=== PATIENT | female | born 1995 | race Caucasian/White ===

== ENCOUNTER 2018-04-21 14:53 | Emergency (ER) | payer MEDICAID ==
[2018-04-21 18:02] LABS: CHLAMYDIA DNA AMPLIFICATION NEGATIVE (NEGATIVE); GC DNA AMPLIFICATION NEGATIVE (NEGATIVE)
== END 2018-04-21 17:19 | disposition left against medical advice (07) ==
LOC: M ED 14:53
DX: Z20.2 Contact with and (suspected) exposure to infections with a predominantly sexual mode of transmission (principal); Z3A.25 25 weeks gestation of pregnancy; Z53.21 Procedure and treatment not carried out due to patient leaving prior to being seen by health care provider

== ENCOUNTER → 2018-07-04 | Outpatient (REF) | payer MEDICAID | LOC: M LAB REF 13:07 | DX: Z34.83 Encounter for supervision of other normal pregnancy, third trimester (principal) | CPT/HCPCS: 87081 ==

== ENCOUNTER 2018-07-31 05:32 | Inpatient (IN) | payer OTHER ==
[2018-07-31] MEDS ORDERED: ceFAZolin 2 GM/D5W 50 ML IV BAG (J0690 PER 500MG) As Ordered (06:14)
[2018-07-31] MEDS ORDERED: BICITRA 30ML SOLN UDC As Ordered (06:14)
[2018-07-31 06:27] LABS: HEMATOCRIT 34.5 % (36.0-47.0); MEAN CORPUSCULAR HEMOGLOBIN 27.9 pg (27.0-33.0); MEAN CORPUSCULAR HGB CONC 31.9 g/dl (32.0-36.5); MEAN CORPUSCULAR VOLUME 87.6 fl (80.0-96.0); PLATELET COUNT, AUTOMATED 209 10^3/uL (150-450); RED BLOOD COUNT 3.94 10^6/uL (4.00-5.40); RED CELL DISTRIBUTION WIDTH 13.3 % (11.5-14.5); WHITE BLOOD COUNT 8.3 10^3/uL (4.0-10.0)
[2018-07-31] MEDS ORDERED: LR 1,000 ML IV (07:00)
[2018-07-31] MEDS: LR 800 ML IV (07:27)
[2018-07-31] MEDS: BICITRA 30ML SOLN UDC PO (07:27)
[2018-07-31] MEDS ORDERED: ONDANSETRON 4MG/2ML VIAL (J2405) IV ×3 (07:46→09:00)
[2018-07-31] MEDS ORDERED: NALOXONE INJ 0.4 MG/1 ML VIAL (J2310) IV ×2 (07:46)
[2018-07-31] MEDS ORDERED: MORPHINE PRES-FREE INJ 10 MG/10 ML VIAL (J2274) As Ordered (07:52)
[2018-07-31] MEDS ORDERED: ONDANSETRON 4MG/2ML VIAL (J2405) As Ordered (07:52)
[2018-07-31] MEDS ORDERED: OXYTOCIN INJ 10 UNITS/ML VIAL (J2590) As Ordered (07:52)
[2018-07-31] MEDS ORDERED: ePHEDrine SULFATE 25 MG/5 ML(5MG/ML) SYRINGE As Ordered (07:56)
[2018-07-31] MEDS: PRENATAL VITAMINS CHEWABLE TABLET PO (09:00)
[2018-07-31] MEDS ORDERED: METOCLOPRAMIDE INJ 10MG/2ML VIAL (J2765) IV (09:00)
[2018-07-31] MEDS ORDERED: fentaNYL 100 MCG/2 ML INJECTION (J3010) IV (09:00)
[2018-07-31] MEDS ORDERED: MEPERIDINE INJ 25 MG/ML VIAL (J2175) IV (09:00)
[2018-07-31] MEDS ORDERED: PERCOCET 5MG/325MG TAB PO (09:00)
[2018-07-31] MEDS: ePHEDrine SULFATE 25 MG/5 ML(5MG/ML) SYRINGE IV (09:00)
[2018-07-31] MEDS: LR 1,000 ML IV ×2 (09:00)
[2018-07-31] MEDS ORDERED: KETOROLAC 30 MG/ML VIAL (J1885) IV (09:00)
[2018-07-31] MEDS ORDERED: OXYTOCIN 30 UNITS IN 0.9% NaCl 500ML IV BAG (J2590) As Ordered (09:09)
[2018-07-31] MEDS ORDERED: KETOROLAC 30 MG/ML VIAL (J1885) As Ordered (09:09)
[2018-07-31] MEDS: OXYTOCIN DRIP 30 UNITS in APPROPRIATE DILUENT 1 EA IV (09:12)
[2018-07-31] MEDS: KETOROLAC 30 MG/ML VIAL (J1885) IV ×3 (09:12→20:46)
[2018-07-31] MEDS: RHOGAM 300 MCG (1500 IU) INJ (J2790) IM (10:54)
[2018-07-31] MEDS: MEASLES,MUMPS,RUBELLA VACCINE INJ (MMR-II) (90707) SC (10:55)
[2018-07-31] MEDS: NALBUPHINE HCL 10 MG/ML AMP (J2300) IV ×2 (12:13→20:46)
[2018-07-31] MEDS: METOCLOPRAMIDE INJ 10MG/2ML VIAL (J2765) IV (14:22)
[2018-08-01] MEDS: LR 1,000 ML IV ×2 (01:00→01:15)
[2018-08-01] MEDS: KETOROLAC 30 MG/ML VIAL (J1885) IV (02:39)
[2018-08-01 07:26] LABS: HEMATOCRIT 27.9 % (36.0-47.0); HEMOGLOBIN 9.1 g/dl (12.0-15.5); MEAN CORPUSCULAR HEMOGLOBIN 28.3 pg (27.0-33.0); MEAN CORPUSCULAR HGB CONC 32.6 g/dl (32.0-36.5); MEAN CORPUSCULAR VOLUME 86.6 fl (80.0-96.0); PLATELET COUNT, AUTOMATED 161 10^3/uL (150-450); RED BLOOD COUNT 3.22 10^6/uL (4.00-5.40); RED CELL DISTRIBUTION WIDTH 13.6 % (11.5-14.5); WHITE BLOOD COUNT 8.3 10^3/uL (4.0-10.0)
[2018-08-01] MEDS: PRENATAL VITAMINS CHEWABLE TABLET PO (10:18)
[2018-08-01] MEDS: IBUPROFEN 800 MG TAB PO ×2 (10:18→19:39)
[2018-08-01] MEDS ORDERED: PERCOCET 5MG/325MG TAB PO (17:30)
[2018-08-01] MEDS: PERCOCET 5MG/325MG TAB PO (17:35)
[2018-08-02] MEDS: IBUPROFEN 800 MG TAB PO ×2 (02:22→11:37)
[2018-08-02] MEDS: PRENATAL VITAMINS CHEWABLE TABLET PO (07:42)
[2018-08-02 09:30] LABS: HBSAG L&D NEGATIVE (NEGATIVE)
== END 2018-08-02 12:25 | disposition home or self-care (01) | DRG 540 ==
LOC: M LDI 05:32 → M OBS 10:16
PROVIDERS: Specialist
PROC: 10D00Z1 Extraction of Products of Conception, Low, Open Approach (ICD-10-PCS; principal; 2018-07-31 07:30)
DX: O34.211 Maternal care for low transverse scar from previous cesarean delivery (principal); Z37.0 Single live birth; Z3A.39 39 weeks gestation of pregnancy

== ENCOUNTER 2018-10-02 08:24 | Emergency (ER) | payer OTHER ==
[~2018-10-02] VITALS: Ht 162.6 cm; Wt 77.7 kg
[~2018-10-02 08:24] MED LIST: IBUP-1114 PO; OXYC1TAB23 PO; PREN200C PO; prenatal PO
[2018-10-02] MEDS ORDERED: NS 1,000 ML IV ONE (08:45)
[2018-10-02] MEDS ORDERED: ONDANSETRON 4MG/2ML VIAL (J2405) IV ONE (08:45)
[2018-10-02 09:25] LABS: BASO % 0.3 % (0.0-1.0); EOS # 0.1 10^3/uL (0.0-0.50); EOS % 1.2 % (0.0-3.0); HEMATOCRIT 37.2 % (36.0-47.0); HEMOGLOBIN 12.4 g/dl (12.0-15.5); LYMPH % 33.4 % (24.0-44.0); MEAN CORPUSCULAR HEMOGLOBIN 28.1 pg (27.0-33.0); MEAN CORPUSCULAR HGB CONC 33.3 g/dl (32.0-36.5); MEAN CORPUSCULAR VOLUME 84.2 fl (80.0-96.0); MONO # 0.5 10^3/uL (0.0-0.8); MONO % 7.4 % (0.0-5.0); NEUTROPHILS # 3.5 10^3/uL (1.8-7.7); NEUTROPHILS % 57.5 % (36.0-66.0); PLATELET COUNT, AUTOMATED 260 10^3/uL (150-450); RED BLOOD COUNT 4.42 10^6/uL (4.00-5.40); WHITE BLOOD COUNT 6.1 10^3/uL (4.0-10.0)
[2018-10-02] MEDS: MORPHINE 2 MG/ML 1ML SYRINGE (J2270) IV PRN ×2 (09:47→11:44)
[2018-10-02 09:58] LABS: ALBUMIN 3.6 GM/DL (3.2-5.2); ALT/SGPT 64 U/L (12-78); AMYLASE 15 U/L (25-115); BILIRUBIN,DIRECT 0.2 MG/DL (0.0-0.2); BILIRUBIN,TOTAL 0.7 MG/DL (0.2-1.0); BLOOD UREA NITROGEN 8 MG/DL (7-18); CALCIUM LEVEL 9.3 MG/DL (8.5-10.1); CARBON DIOXIDE LEVEL 23 MEQ/L (21-32); CHLORIDE LEVEL 107 MEQ/L (98-107); CREATININE FOR GFR 0.69 MG/DL (0.55-1.30); GLOMERULAR FILTRATION RATE > 60.0 (>60); GLUCOSE, FASTING 95 MG/DL (70-100); HCG, SERUM QUALITATIVE NEGATIVE (NEGATIVE); LIPASE 86 U/L (73-393); POTASSIUM SERUM 4.3 MEQ/L (3.5-5.1); SODIUM LEVEL 140 MEQ/L (136-145); TOTAL PROTEIN 7.2 GM/DL (6.4-8.2)
[2018-10-02] MEDS ORDERED: ISOVUE-370 76% 100ML VIAL (Q9967) As Ordered ONE (10:22)
--- NOTE | 2018-10-02 11:28 | REP ---
CT abdomen and pelvis with IV but without oral contrast: History: Right lower quadrant, greater than left lower quadrant pain. Rule out appendicitis. CT contrast dose: 100 mL of intravenous Isovue 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 There is moderate stool in the ascending and descending colon. Umbilical jewelry is noted. The lung bases are clear. The liver and the spleen are normal in size and homogeneous in texture. Gallbladder and the pancreas are unremarkable. No adrenal lesion is seen. The kidneys enhance symmetrically and are morphologically intact. No retroperitoneal mass or adenopathy is observed. No free fluid or free intraperitoneal air is seen. Small follicle cysts are seen in each ovary. No uterine abnormality is seen. The urinary bladder is unremarkable. A section scar is visible in the lower abdomen suprapubic region. A normal appendix is visible in the right lower quadrant. There are several right lower quadrant small bowel mesenteric lymph nodes. The largest of these measures 8.5 mm in short axis dimension. These are not enlarged. No pelvic mass or adenopathy is seen. Bone window settings show no significant bony abnormality. Impression: Normal appendix seen. There are a few right lower quadrant mesenteric lymph nodes which are not pathologically enlarged. Question mesenteric adenitis. Otherwise negative CT study abdomen and pelvis. Electronically Signed by Giuseppe Ko MD 10/02/2018 01:18 P
[2018-10-02 11:36] VITALS: BP 140/87
[2018-10-02 11:55] LABS: CHLAMYDIA DNA AMPLIFICATION NEGATIVE (NEGATIVE); GC DNA AMPLIFICATION NEGATIVE (NEGATIVE)
== END 2018-10-02 11:52 | disposition home or self-care (01) ==
LOC: M ED 08:24
DX: R10.9 Unspecified abdominal pain (principal); Z87.440 Personal history of urinary (tract) infections
CPT/HCPCS: 74177; 80048; 80076; 81001; 82150; 83605; 83690; 84703; 85025; 87040; 87210; 87491; 87591; 96374; 96375; 96376; 99284; J2270; J2405; Q9967

== ENCOUNTER → 2018-11-09 | Outpatient (REF) | payer OTHER ==
[2018-11-09 20:32] LABS: CHLAMYDIA DNA AMPLIFICATION NEGATIVE (NEGATIVE); GC DNA AMPLIFICATION NEGATIVE (NEGATIVE)
== END ==
LOC: M LAB REF 17:01
PROVIDERS: ATTEND Advanced Practice Midwife
DX: Z11.3 Encounter for screening for infections with a predominantly sexual mode of transmission (principal)

== ENCOUNTER → 2018-12-06 | Outpatient (REF) | payer OTHER ==
[2018-12-06 20:26] LABS: CHLAMYDIA DNA AMPLIFICATION NEGATIVE (NEGATIVE); GC DNA AMPLIFICATION NEGATIVE (NEGATIVE)
== END ==
LOC: M LAB REF 17:08
PROVIDERS: ATTEND Advanced Practice Midwife
DX: Z11.3 Encounter for screening for infections with a predominantly sexual mode of transmission (principal)

== ENCOUNTER → 2018-12-20 | Outpatient (REF) | payer OTHER ==
[2018-12-20 12:36] LABS: HEMATOCRIT 36.1 % (36.0-47.0); HEMOGLOBIN 11.2 g/dl (12.0-15.5); MEAN CORPUSCULAR VOLUME 93.5 fl (80.0-96.0); PLATELET COUNT, AUTOMATED 205 10^3/uL (150-450); RED BLOOD COUNT 3.86 10^6/uL (4.00-5.40); WHITE BLOOD COUNT 4.7 10^3/uL (4.0-10.0)
[2018-12-20 13:04] LABS: ALBUMIN 3.5 GM/DL (3.2-5.2); ALT/SGPT 62 U/L (12-78); BILIRUBIN,TOTAL 0.8 MG/DL (0.2-1.0); BLOOD UREA NITROGEN 8 MG/DL (7-18); CALCIUM LEVEL 8.8 MG/DL (8.5-10.1); CARBON DIOXIDE LEVEL 27 MEQ/L (21-32); CHLORIDE LEVEL 112 MEQ/L (98-107); CHOLESTEROL LEVEL 154 MG/DL (<200); CREATININE FOR GFR 0.68 MG/DL (0.55-1.30); FREE T4 1.18 NG/DL (0.76-1.46); GLOMERULAR FILTRATION RATE > 60.0 (>60); GLUCOSE, FASTING 86 MG/DL (70-100); HDL CHOLESTEROL 25 MG/DL (>40); LDL CHOLESTEROL 87 MG/DL (<100); NON-HDL-C 129 MG/DL; POTASSIUM SERUM 4.2 MEQ/L (3.5-5.1); SODIUM LEVEL 144 MEQ/L (136-145); TOTAL 25(OH) VITAMIN D 9.2 NG/ML (30.0-100.0); TRIGLYCERIDES LEVEL 209 MG/DL (<150)
[2018-12-20 14:10] LABS: ATYPICAL LYMPH 28 % (0-5); LYMPHOCYTES 38 % (16-52); MONOCYTES 7 % (0-8); NEUTROPHILS 27 % (35-75); PLATELET ESTIMATE NORMAL (NORMAL)
[2018-12-20 14:11] LABS: ANISOCYTOSIS 1+; OVALOCYTES 1+; POIKILOCYTOSIS 1+
[2018-12-20 18:33] LABS: MONO SCRN NEGATIVE (NEGATIVE)
== END ==
LOC: M SFHCPLAZ 09:58
PROVIDERS: ATTEND Nurse Practitioner Family
DX: Z13.228 Encounter for screening for other metabolic disorders (principal); E55.9 Vitamin D deficiency, unspecified

== ENCOUNTER → 2019-01-08 | Outpatient (REF) | payer OTHER | LOC: M LAB REF 12:44 | PROVIDERS: ATTEND Advanced Practice Midwife | DX: Z12.4 Encounter for screening for malignant neoplasm of cervix (principal) ==

== ENCOUNTER → 2019-02-28 | Outpatient (CLI) | payer OTHER ==
[2019-02-28 19:29] LABS: CHLAMYDIA DNA AMPLIFICATION POSITIVE (NEGATIVE); GC DNA AMPLIFICATION NEGATIVE (NEGATIVE)
[2019-03-02 10:26] LABS: HEPATITIS A ANTIBODY IGM NEGATIVE (NEGATIVE); HEPATITIS B CORE ANTIBODY IGM NEGATIVE (NEGATIVE); HEPATITIS B SURFACE ANTIGEN NEGATIVE (NEGATIVE); HIV 1&2 SCREEN CENTAUR NEGATIVE (NEGATIVE)
== END ==
LOC: M SMT 13:46
PROVIDERS: ATTEND Advanced Practice Midwife
DX: Z11.3 Encounter for screening for infections with a predominantly sexual mode of transmission (principal); R30.0 Dysuria

== ENCOUNTER 2019-06-03 17:49 | Emergency (ER) | payer OTHER ==
[~2019-06-03] VITALS: Ht 162.6 cm; Wt 73.4 kg
[2019-06-03 18:29] LABS: BASO # 0.1 10^3/uL (0.0-0.2); EOS % 0.8 % (0.0-3.0); HEMOGLOBIN 13.3 g/dl (12.0-15.5); LYMPH # 2.4 10^3/uL (1.5-5.0); MEAN CORPUSCULAR HEMOGLOBIN 31.2 pg (27.0-33.0); MEAN CORPUSCULAR HGB CONC 33.3 g/dl (32.0-36.5); MEAN CORPUSCULAR VOLUME 93.9 fl (80.0-96.0); MONO # 0.3 10^3/uL (0.0-0.8); MONO % 5.7 % (0.0-5.0); NEUTROPHILS # 2.5 10^3/uL (1.5-8.5); NEUTROPHILS % 47.3 % (36.0-66.0); PLATELET COUNT, AUTOMATED 230 10^3/uL (150-450); RED BLOOD COUNT 4.26 10^6/uL (4.00-5.40); WHITE BLOOD COUNT 5.2 10^3/uL (4.0-10.0)
[2019-06-03] MEDS ORDERED: ACETAMINOPHEN 325 MG TAB PO ONE (18:30)
[2019-06-03] MEDS ORDERED: ONDANSETRON 4 MG ORAL DISINTEGRATING TAB (Q0162 PER 1MG) PO ONE (18:30)
[2019-06-03 18:54] LABS: BLOOD UREA NITROGEN 12 MG/DL (7-18); CALCIUM LEVEL 9.2 MG/DL (8.5-10.1); CARBON DIOXIDE LEVEL 25 MEQ/L (21-32); CHLORIDE LEVEL 109 MEQ/L (98-107); CREATININE FOR GFR 0.78 MG/DL (0.55-1.30); GLOMERULAR FILTRATION RATE > 60.0 (>60); GLUCOSE, FASTING 84 MG/DL (70-100); POTASSIUM SERUM 4.2 MEQ/L (3.5-5.1); SODIUM LEVEL 141 MEQ/L (136-145)
[2019-06-03 19:18] VITALS: BP 118/79
== END 2019-06-03 19:21 | disposition home or self-care (01) ==
LOC: M ED 17:49
DX: O03.9 Complete or unspecified spontaneous abortion without complication (principal)
CPT/HCPCS: 36415; 80048; 81001; 84702; 85025; 87086; 99283; Q0162

== ENCOUNTER → 2019-06-25 | Outpatient (REF) | payer OTHER ==
[2019-06-25 20:42] LABS: CHLAMYDIA DNA AMPLIFICATION NEGATIVE (NEGATIVE); GC DNA AMPLIFICATION NEGATIVE (NEGATIVE)
== END ==
LOC: M LAB REF 16:49
PROVIDERS: ATTEND Specialist
DX: Z11.3 Encounter for screening for infections with a predominantly sexual mode of transmission (principal)

== ENCOUNTER → 2019-08-13 | Outpatient (REF) | payer OTHER | LOC: M SFHCPLAZ 17:21 | PROVIDERS: ATTEND Physician Assistant | DX: J02.9 Acute pharyngitis, unspecified (principal) ==

== ENCOUNTER 2019-08-21 09:32 | Emergency (ER) | payer OTHER ==
[~2019-08-21] VITALS: Ht 162.6 cm; Wt 74.1 kg
[2019-08-21 11:32] LABS: URINE PREG TEST NEGATIVE (NEGATIVE)
[2019-08-21] MEDS ORDERED: AZITHROMYCIN 250 MG TAB PO ONE (11:45)
[2019-08-21] MEDS ORDERED: LIDOCAINE 1% SDV 5 ML VIAL DILUENT ONE (11:45)
[2019-08-21] MEDS ORDERED: cefTRIAXone SOD 250 MG VIAL (J0696) IM ONE (11:45)
[2019-08-21 12:01] LABS: CHLAMYDIA DNA AMPLIFICATION NEGATIVE (NEGATIVE); GC DNA AMPLIFICATION NEGATIVE (NEGATIVE)
[2019-08-21 12:20] VITALS: BP 122/65
== END 2019-08-21 12:21 | disposition home or self-care (01) ==
LOC: M ED 09:32
DX: N93.8 Other specified abnormal uterine and vaginal bleeding (principal); Z86.19 Personal history of other infectious and parasitic diseases
CPT/HCPCS: 81001; 84703; 87086; 87210; 87661; 96372; 99283; J0696

== ENCOUNTER 2019-09-17 07:49 | Day surgery (SDC) | payer OTHER ==
[~2019-09-17] VITALS: Ht 162.6 cm; Wt 73.5 kg
[~2019-09-17 07:49] MED LIST changes: +LIDOCAINE 1% MDV 20ML VIAL SQ PRN; +LR 1,000 ML IV ONE
[2019-09-17] MEDS ORDERED: SCOPOLAMINE 1MG TRANSDERMAL PATCH As Ordered ONE (09:34)
[2019-09-17] MEDS ORDERED: BUPIVACAINE HCL 0.5% 10 ML VIAL As Ordered ONE (09:40)
[2019-09-17] MEDS ORDERED: dexameTHASONE 4 MG/ML 1ML VIAL (J1100) As Ordered ONE (09:43)
[2019-09-17] MEDS ORDERED: LIDOCAINE 2% INJ 100 MG/5 ML SDV (FOR ANES.) As Ordered ONE (09:43)
[2019-09-17] MEDS ORDERED: ONDANSETRON 4MG/2ML VIAL (J2405) As Ordered ONE (09:43)
[2019-09-17] MEDS ORDERED: PROPOFOL 200 MG/20 ML VIAL As Ordered ONE ×2 (09:43→10:07)
[2019-09-17] MEDS ORDERED: MIDAZOLAM INJ 2 MG/2 ML VIAL (J2250) As Ordered ONE (09:44)
[2019-09-17] MEDS ORDERED: fentaNYL 100 MCG/2 ML INJECTION (J3010) As Ordered ONE ×2 (09:44→10:13)
[2019-09-17] MEDS ORDERED: ROCURONIUM BROMIDE 50 MG/5 ML VIAL As Ordered ONE (09:45)
[2019-09-17] MEDS ORDERED: ACETAMINOPHEN 1000MG 100ML IV BTL (OFIRMEV) (J0131 PER 10MG) As Ordered ONE (09:52)
[2019-09-17] MEDS ORDERED: SCOPOLAMINE 1MG TRANSDERMAL PATCH TOP ONE (10:00)
[2019-09-17] MEDS ORDERED: ESMOLOL INJ 100MG/10ML VIAL As Ordered ONE (10:12)
[2019-09-17] MEDS: fentaNYL 100 MCG/2 ML INJECTION (J3010) IV PRN ×4 (11:10→11:25)
[2019-09-17] MEDS ORDERED: oxyCODONE 5MG TAB PO PRN (11:15)
[2019-09-17] MEDS ORDERED: METOCLOPRAMIDE INJ 10MG/2ML VIAL (J2765) IV PRN (11:15)
[2019-09-17] MEDS ORDERED: LR 1,000 ML IV SCH (11:15)
[2019-09-17] MEDS ORDERED: ONDANSETRON 4MG/2ML VIAL (J2405) IV PRN (11:15)
[2019-09-17 12:24] VITALS: BP 153/84
--- NOTE | 2019-09-19 14:43 | RO ---
DATE OF PROCEDURE: 09/17/2019 PREOPERATIVE DIAGNOSIS: Chronic tonsillitis. POSTOPERATIVE DIAGNOSIS: Chronic tonsillitis. PROCEDURE: Tonsillectomy. SURGEON: Hari Patiño MD COBBLER MCKAY: ANESTHESIA: General. INDICATION: 23-year-old with a history of recurrent tonsillitis, pharyngitis of the tonsils. DESCRIPTION OF PROCEDURE: The patient was placed in the supine position. General endotracheal anesthesia was administered. The patient placed in Trendelenburg position. Then, a Jonh-Johnson gag was inserted. First, the right tonsil was grasped with an Allis clamp and retracted out of its muscular fossa. Using cutting cautery, incision was made on the anterior pillar 3 mm from its edge and the capsule of the tonsil was then identified. Using a combination of cautery and blunt dissection, the tonsil was dissected medially out of its muscular fossa, working superiorly down into the space between the constrictor muscle and the tonsil capsule. The tonsil was rolled medially out of its fossa, working inferiorly and preserving the posterior pillar in its entirety. Once the tonsil was suspended only at the inferior pole, coagulation current was used to amputate tissue. No significant bleeding was encountered in this dissection. The left tonsil was removed in a similar fashion. After completing surgery, 0.5% Marcaine was injected into the tonsil fossae. The gag was released at 3 minutes. Re-inspection showed no active bleeding. The patient was then awakened, extubated, and sent to recovery in satisfactory condition. Total blood loss was 5 mL. She will be discharged home on Hycet elixir for pain, Motrin 800 mg three times a day as an alternate and Keflex suspension 250 mg twice a day. She will be see in the office in 1 week.
== END 2019-09-17 12:27 | disposition home or self-care (01) ==
LOC: M SDC 07:49
PROVIDERS: ATTEND Specialist
DX: J35.01 Chronic tonsillitis (principal); Z91.040 Latex allergy status
CPT/HCPCS: 42826; 81025; 88302; J0131; J1100; J2250; J2405; J3010

== ENCOUNTER → 2019-09-26 | Outpatient (REF) | payer OTHER ==
[~2019-09-26] MED LIST changes: -LIDOCAINE 1% MDV 20ML VIAL SQ PRN; -LR 1,000 ML IV ONE
[2019-09-27 14:05] LABS: CHLAMYDIA DNA AMPLIFICATION NEGATIVE (NEGATIVE); GC DNA AMPLIFICATION NEGATIVE (NEGATIVE)
== END ==
LOC: M SFHCLERA 19:25
PROVIDERS: ATTEND Physician Assistant
DX: N89.8 Other specified noninflammatory disorders of vagina (principal)

== ENCOUNTER → 2019-10-06 | Outpatient (CLI) | payer OTHER ==
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
== END ==
LOC: M LRY 12:51
PROVIDERS: ATTEND Physician Assistant
DX: R07.81 Pleurodynia (principal); Z87.09 Personal history of other diseases of the respiratory system; S42.025A Nondisplaced fracture of shaft of left clavicle, initial encounter for closed fracture; X58.XXXA Exposure to other specified factors, initial encounter; Y92.9 Unspecified place or not applicable

== ENCOUNTER → 2019-10-09 | Outpatient (REF) | payer OTHER | LOC: M SFHCLERA 15:55 | PROVIDERS: ATTEND Nurse Practitioner Family | DX: N94.9 Unspecified condition associated with female genital organs and menstrual cycle (principal) ==

== ENCOUNTER 2019-10-25 10:56 | Day surgery (SDC) | payer OTHER ==
[~2019-10-25] VITALS: Ht 162.6 cm; Wt 72.1 kg
[~2019-10-25 10:56] MED LIST changes: +KETOROLAC 60 MG/2 ML VIAL (J1885) As Ordered ONE; +LIDOCAINE 2% INJ 100 MG/5 ML SDV (FOR ANES.) As Ordered ONE; +LR 1,000 ML IV ONE; +METOCLOPRAMIDE INJ 10MG/2ML VIAL (J2765) As Ordered ONE; +MIDAZOLAM INJ 2 MG/2 ML VIAL (J2250) As Ordered ONE; +ONDANSETRON 4MG/2ML VIAL (J2405) As Ordered ONE; +ROCURONIUM BROMIDE 50 MG/5 ML VIAL As Ordered ONE; +SUGAMMADEX SODIUM 500 MG/5 ML VIAL (BRIDION) As Ordered ONE; +ceFAZolin SOD 2 GM in IV 1 EA IV ONE; +dexameTHASONE 4 MG/ML 1ML VIAL (J1100) As Ordered ONE; +fentaNYL 100 MCG/2 ML INJECTION (J3010) As Ordered ONE; +propofoL 200 MG/20 ML VIAL As Ordered ONE
[2019-10-25] MEDS ORDERED: SCOPOLAMINE 1MG TRANSDERMAL PATCH TOP ONE (12:45)
[2019-10-25] MEDS ORDERED: BUPIVACAINE/EPIN 0.25% 30 ML VIAL As Ordered ONE (12:47)
[2019-10-25] MEDS ORDERED: propofoL 200 MG/20 ML VIAL As Ordered ONE (13:37)
[2019-10-25] MEDS ORDERED: ROCURONIUM BROMIDE 50 MG/5 ML VIAL As Ordered ONE (13:37)
[2019-10-25] MEDS ORDERED: LIDOCAINE 2% INJ 100 MG/5 ML SDV (FOR ANES.) As Ordered ONE (13:37)
[2019-10-25] MEDS ORDERED: dexameTHASONE 4 MG/ML 1ML VIAL (J1100) As Ordered ONE (13:37)
[2019-10-25] MEDS ORDERED: ONDANSETRON 4MG/2ML VIAL (J2405) As Ordered ONE ×2 (13:37→16:19)
[2019-10-25] MEDS ORDERED: KETOROLAC 60 MG/2 ML VIAL (J1885) As Ordered ONE (13:37)
[2019-10-25] MEDS ORDERED: METOCLOPRAMIDE INJ 10MG/2ML VIAL (J2765) As Ordered ONE (13:37)
[2019-10-25] MEDS ORDERED: SUGAMMADEX SODIUM 500 MG/5 ML VIAL (BRIDION) As Ordered ONE (13:37)
[2019-10-25] MEDS ORDERED: fentaNYL 250 MCG/5 ML INJECTION (J3010) As Ordered ONE (13:40)
[2019-10-25] MEDS ORDERED: DESFLURANE 240 ML INHALANT As Ordered ONE (13:40)
[2019-10-25] MEDS ORDERED: ACETAMINOPHEN 1000MG 100ML IV BTL (OFIRMEV) (J0131 PER 10MG) As Ordered ONE (14:01)
[2019-10-25] MEDS: HYDROMORPHONE HCL 0.5 MG/ 0.5 ML SYRINGE (J1170 PER 1) IV PRN ×3 (14:55→15:15)
[2019-10-25] MEDS ORDERED: oxyCODONE 5MG TAB PO PRN ×2 (15:00)
[2019-10-25] MEDS ORDERED: fentaNYL 100 MCG/2 ML INJECTION (J3010) IV PRN (15:00)
[2019-10-25] MEDS ORDERED: LR 1,000 ML IV SCH (15:00)
[2019-10-25] MEDS ORDERED: ONDANSETRON 4MG/2ML VIAL (J2405) IV PRN (15:00)
[2019-10-25] MEDS: oxyCODONE 5MG TAB PO PRN ×2 (15:28→16:00)
[2019-10-25 16:52] VITALS: BP 122/82
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
== END 2019-10-25 16:52 | disposition home or self-care (01) ==
LOC: M SDC 10:56
PROVIDERS: ATTEND Orthopaedic Surgery Hand Surgery
DX: S42.002P Fracture of unspecified part of left clavicle, subsequent encounter for fracture with malunion (principal); V49.60XA Unspecified car occupant injured in collision with unspecified motor vehicles in traffic accident, initial encounter; Y92.410 Unspecified street and highway as the place of occurrence of the external cause; Z87.81 Personal history of (healed) traumatic fracture; Z87.09 Personal history of other diseases of the respiratory system; Z91.018 Allergy to other foods; Z91.040 Latex allergy status
CPT/HCPCS: 23515; 76000; 81025; C1713; J0131; J0690; J1100; J1170; J1885; J2250; J2405; J2765; J3010

== ENCOUNTER 2020-08-21 19:25 | Emergency (ER) | payer OTHER ==
[~2020-08-21] VITALS: Ht 165.1 cm; Wt 82.7 kg
[~2020-08-21 19:25] MED LIST changes: -KETOROLAC 60 MG/2 ML VIAL (J1885) As Ordered ONE; -LIDOCAINE 2% INJ 100 MG/5 ML SDV (FOR ANES.) As Ordered ONE; -LR 1,000 ML IV ONE; -METOCLOPRAMIDE INJ 10MG/2ML VIAL (J2765) As Ordered ONE; -MIDAZOLAM INJ 2 MG/2 ML VIAL (J2250) As Ordered ONE; -ONDANSETRON 4MG/2ML VIAL (J2405) As Ordered ONE; -ROCURONIUM BROMIDE 50 MG/5 ML VIAL As Ordered ONE; -SUGAMMADEX SODIUM 500 MG/5 ML VIAL (BRIDION) As Ordered ONE; -ceFAZolin SOD 2 GM in IV 1 EA IV ONE; -dexameTHASONE 4 MG/ML 1ML VIAL (J1100) As Ordered ONE; -fentaNYL 100 MCG/2 ML INJECTION (J3010) As Ordered ONE; -propofoL 200 MG/20 ML VIAL As Ordered ONE
[2020-08-21 20:41] LABS: BASO % 0.6 % (0.0-1.0); EOS % 0.6 % (0.0-3.0); HEMATOCRIT 41.8 % (36.0-47.0); HEMOGLOBIN 13.4 g/dl (12.0-15.5); LYMPH # 2.7 10^3/uL (1.5-5.0); LYMPH % 39.4 % (24.0-44.0); MEAN CORPUSCULAR HEMOGLOBIN 29.6 pg (27.0-33.0); MEAN CORPUSCULAR HGB CONC 32.1 g/dl (32.0-36.5); MEAN CORPUSCULAR VOLUME 92.3 fl (80.0-96.0); MONO # 0.3 10^3/uL (0.0-0.8); MONO % 5.1 % (0.0-5.0); NEUTROPHILS # 3.7 10^3/uL (1.5-8.5); NEUTROPHILS % 54.2 % (36.0-66.0); PLATELET COUNT, AUTOMATED 236 10^3/uL (150-450); RED BLOOD COUNT 4.53 10^6/uL (4.00-5.40); WHITE BLOOD COUNT 6.7 10^3/uL (4.0-10.0)
[2020-08-21 21:07] LABS: HCG, SERUM QUALITATIVE NEGATIVE (NEGATIVE)
[2020-08-21 21:10] LABS: ALBUMIN 4.2 GM/DL (3.2-5.2); ALT/SGPT 21 U/L (12-78); AMYLASE 22 U/L (25-115); BILIRUBIN,DIRECT 0.2 MG/DL (0.0-0.2); BILIRUBIN,TOTAL 0.6 MG/DL (0.2-1.0); BLOOD UREA NITROGEN 14 MG/DL (7-18); CALCIUM LEVEL 9.1 MG/DL (8.5-10.1); CARBON DIOXIDE LEVEL 27 MEQ/L (21-32); CHLORIDE LEVEL 111 MEQ/L (98-107); GLOMERULAR FILTRATION RATE > 60.0 (>60); GLUCOSE, FASTING 76 MG/DL (70-100); LIPASE 116 U/L (73-393); POTASSIUM SERUM 4.3 MEQ/L (3.5-5.1); SODIUM LEVEL 140 MEQ/L (136-145); TOTAL PROTEIN 7.8 GM/DL (6.4-8.2)
[2020-08-21] MEDS ORDERED: NS 1,000 ML IV ONE (21:15)
[2020-08-21] MEDS ORDERED: KETOROLAC 30 MG/ML 1ML VIAL IV ONE (21:15)
[2020-08-21] MEDS ORDERED: ISOVUE-370 76% 100ML VIAL As Ordered ONE (21:26)
[2020-08-21] MEDS ORDERED: ONDANSETRON 4MG/2ML VIAL IV ONE (21:30)
--- NOTE | 2020-08-21 22:04 | REPVR ---
PROCEDURE INFORMATION: Exam: CT Abdomen And Pelvis With Contrast Exam date and time: 08/21/2020 9:34 PM Age: 24 years old Clinical indication: Abdominal pain; Localized; Right lower quadrant (rlq); Additional info: Periumbilical and rlq pain, R/O appendicitis TECHNIQUE: Imaging protocol: Computed tomography of the abdomen and pelvis with intravenous contrast. Axial, coronal and sagittal reformatted images were created and reviewed. Radiation optimization: All CT scans at this facility use at least one of these dose optimization techniques: automated exposure control; mA and/or kV adjustment per patient size (includes targeted exams where dose is matched to clinical indication); or iterative reconstruction. Contrast material: ISOVUE 370; Contrast volume: 100 ml; Contrast route: INTRAVENOUS (IV); COMPARISON: CT ABD/PEL W/IV CONTRAST ONLY 10/02/2018 10:41 AM FINDINGS: Liver: Unremarkable. Gallbladder and bile ducts: No radiodense gallstones. No biliary ductal dilatation. Pancreas: Unremarkable. Spleen: Unremarkable. Adrenal glands: Normal. No mass. Kidneys and ureters: No mass. No radiodense calculi. No hydronephrosis. Stomach and bowel: No bowel wall thickening. No obstruction. No pneumatosis. Appendix: Normal. Intraperitoneal space: No free fluid. No organized fluid collection. No free air. Vasculature: Unremarkable. No aneurysm. Lymph nodes: Small mesenteric lymph nodes, nonspecific in appearance. No pathologically enlarged lymph nodes. Urinary bladder: Unremarkable as visualized. Reproductive: Unremarkable. Bones/joints: No acute osseous abnormality. Soft tissues: Diffuse subcutaneous scarring, suggestive of prior abdominoplasty. IMPRESSION: 1. No CT evidence of acute intra-abdominal or pelvic pathology. 2. Additional findings, as above. Electronically signed by: Corona Perez On 08/21/2020 22:04:07 PM
[2020-08-21] MEDS ORDERED: DICY10CA13 PO (22:15)
[2020-08-21 22:28] VITALS: BP 141/88
== END 2020-08-21 22:29 | disposition home or self-care (01) ==
LOC: M ED 19:25
DX: R10.84 Generalized abdominal pain (principal); Z91.040 Latex allergy status; Z91.018 Allergy to other foods; Z91.02 Food additives allergy status
CPT/HCPCS: 36415; 74177; 80048; 80076; 81001; 82150; 83690; 84703; 85025; 99284; J1885; J2405; Q9967

== ENCOUNTER → 2020-10-23 | Outpatient (REF) ==
[~2020-10-23] MED LIST changes: +DICY10CA13 PO
== END ==
LOC: M LABSMTC 11:37
PROVIDERS: ATTEND Family Medicine
DX: Z20.822 Contact with and (suspected) exposure to COVID-19 (principal)

== ENCOUNTER → 2020-11-14 | Outpatient (REF) | LOC: M LABSMTC 14:22 | PROVIDERS: ATTEND Pediatrics | DX: Z11.52 Encounter for screening for COVID-19 (principal) ==

== ENCOUNTER 2021-01-20 12:16 | Emergency (ER) | payer OTHER ==
[~2021-01-20] VITALS: Ht 165.1 cm; Wt 88.0 kg
[2021-01-20] MEDS ORDERED: DEPO150I12 IM (12:25)
[2021-01-20] MEDS ORDERED: ACETAMINOPHEN 325 MG TAB PO ONE (14:50)
[2021-01-20] MEDS ORDERED: ONDANSETRON 4 MG ORAL DISINTEGRATING TAB PO ONE (14:50)
[2021-01-20] MEDS ORDERED: ONDA4TAB6 PO (15:25)
[2021-01-20 15:55] VITALS: BP 124/79
== END 2021-01-20 15:53 | disposition home or self-care (01) ==
LOC: M ED 12:16
DX: S00.432A Contusion of left ear, initial encounter (principal); S06.0X0A Concussion without loss of consciousness, initial encounter; Y04.0XXA Assault by unarmed brawl or fight, initial encounter; Y92.009 Unspecified place in unspecified non-institutional (private) residence as the place of occurrence of the external cause; Y93.9 Activity, unspecified; Y99.9 Unspecified external cause status; Z91.02 Food additives allergy status; Z91.040 Latex allergy status
CPT/HCPCS: 99283; Q0162

== ENCOUNTER 2021-03-15 20:43 | Emergency (ER) | payer OTHER ==
[~2021-03-15] VITALS: Ht 165.1 cm; Wt 86.1 kg
[~2021-03-15 20:43] MED LIST changes: +DEPO150I12 IM; +ONDA4TAB6 PO
[2021-03-15 20:44] VITALS: BP 146/89
[2021-03-15] MEDS ORDERED: AUGMENTIN 875 MG TAB PO ONE (23:45)
[2021-03-15] MEDS ORDERED: VENTAER INH (23:55)
[2021-03-15] MEDS ORDERED: AUGM875T28 PO (23:55)
== END 2021-03-16 00:29 | disposition home or self-care (01) ==
LOC: M ED 20:43
DX: J20.9 Acute bronchitis, unspecified (principal); H66.91 Otitis media, unspecified, right ear; Z91.040 Latex allergy status; Z91.018 Allergy to other foods; Z91.02 Food additives allergy status

== ENCOUNTER 2021-04-29 11:19 | Emergency (ER) | payer OTHER ==
[~2021-04-29] VITALS: Ht 162.6 cm; Wt 88.1 kg
[2021-04-29 11:19] VITALS: BP 123/74
[~2021-04-29 11:19] MED LIST changes: +AUGM875T28 PO; +VENTAER INH
== END 2021-04-29 13:27 | disposition home or self-care (01) ==
LOC: M ED 11:19
DX: Z32.01 Encounter for pregnancy test, result positive (principal); Z91.040 Latex allergy status; Z91.018 Allergy to other foods

== ENCOUNTER 2021-05-01 09:43 | Emergency (ER) | payer OTHER ==
[~2021-05-01] VITALS: Ht 162.6 cm; Wt 87.4 kg
[2021-05-01 10:32] LABS: BASO % 0.4 % (0.0-1.0); EOS # 0.1 10^3/uL (0.0-0.5); EOS % 0.8 % (0.0-3.0); HEMATOCRIT 40.4 % (36.0-47.0); HEMOGLOBIN 13.2 g/dl (12.0-15.5); LYMPH # 1.8 10^3/uL (1.5-5.0); LYMPH % 22.1 % (24.0-44.0); MEAN CORPUSCULAR HEMOGLOBIN 30.1 pg (27.0-33.0); MEAN CORPUSCULAR HGB CONC 32.7 g/dl (32.0-36.5); MONO # 0.3 10^3/uL (0.0-0.8); MONO % 4.3 % (2.0-8.0); NEUTROPHILS # 5.7 10^3/uL (1.5-8.5); NEUTROPHILS % 72.1 % (36.0-66.0); PLATELET COUNT, AUTOMATED 214 10^3/uL (150-450); RED BLOOD COUNT 4.39 10^6/uL (4.00-5.40); WHITE BLOOD COUNT 7.9 10^3/uL (4.0-10.0)
--- NOTE | 2021-05-01 12:01 | REP ---
INDICATION: R pelvic pain, no vaginal bleeding HCG 96. COMPARISON: None. TECHNIQUE: Real-time sonographic evaluation of pelvis performed utilizing transabdominal and endovaginal technique. FINDINGS: The uterus measures 10.3 x 4.5 x 6.4 cm. Endometrial thickness is approximately 11 mm. A small amount of fluid in the endometrial canal separates the endometrium. No gestational sac is seen. The right ovary could not be visualized. Left ovary is normal in size measuring 2.7 x 2.0 x 2.3 cm. Blood flow is seen in the left ovary with duplex Doppler evaluation. There is no evidence of adnexal mass. There is no evidence of free fluid. IMPRESSION: Small amount of fluid in the endometrial canal. No gestational sac is seen within the endometrial canal. The right ovary could not be visualized. There is no evidence of adnexal mass or free fluid. Differential diagnosis would include very early intrauterine , missed AB, or ectopic . Suggest correlation with serial quantitative beta HCG values, and follow-up ultrasound if necessary. <Electronically signed by Ge Eric > 05/01/21 [id number]
[2021-05-01] MEDS ORDERED: cefTRIAXone 500MG VIAL (J0696 PER 250MG) IM ONE (12:55)
[2021-05-01] MEDS ORDERED: LIDOCAINE 1% SDV 5ML VIAL DILUENT ONE (12:55)
[2021-05-01] MEDS ORDERED: MACR100C43 PO (13:00)
[2021-05-01] MEDS ORDERED: FLAG500T PO (13:00)
[2021-05-01 13:06] VITALS: BP 122/77
[2021-05-01 13:55] LABS: GC DNA AMPLIFICATION NEGATIVE (NEGATIVE)
[2021-05-03] MEDS ORDERED: CEPH500C PO (12:52)
== END 2021-05-01 13:15 | disposition home or self-care (01) ==
LOC: M ED 09:43
DX: O23.599 Infection of other part of genital tract in pregnancy, unspecified trimester (principal); O23.40 Unspecified infection of urinary tract in pregnancy, unspecified trimester; Z87.59 Personal history of other complications of pregnancy, childbirth and the puerperium; Z86.19 Personal history of other infectious and parasitic diseases; Z91.018 Allergy to other foods; Z91.040 Latex allergy status
CPT/HCPCS: 36415; 76801; 76817; 80047; 81001; 84702; 85025; 86901; 87088; 87186; 87210; 87661; 93976; 96372; 99284; J0696

== ENCOUNTER → 2021-05-05 | Outpatient (CLI) | payer OTHER ==
[~2021-05-05] MED LIST changes: +CEPH500C PO; +FLAG500T PO; +MACR100C43 PO
== END ==
LOC: M WUC 11:55
PROVIDERS: ATTEND Obstetrics & Gynecology
DX: Z34.90 Encounter for supervision of normal pregnancy, unspecified, unspecified trimester (principal); Z3A.00 Weeks of gestation of pregnancy not specified

== ENCOUNTER 2022-09-19 19:04 | Emergency (ER) | payer OTHER ==
[~2022-09-19] VITALS: Ht 165.1 cm; Wt 93.4 kg
[2022-09-19 19:05] VITALS: BP 124/80
== END 2022-09-19 21:50 | disposition left against medical advice (07) ==
LOC: M ED 19:04
DX: Z53.21 Procedure and treatment not carried out due to patient leaving prior to being seen by health care provider (principal)

== ENCOUNTER 2023-05-05 20:58 | Emergency (ER) | payer OTHER ==
[~2023-05-05] VITALS: Ht 165.1 cm; Wt 86.4 kg
[~2023-05-05 20:58] MED LIST changes: +DICY-61 PO; -DICY10CA13 PO
[2023-05-05 20:59] VITALS: BP 150/92; TEMP 98.8; O2SAT 96
== END 2023-05-05 23:57 | disposition left against medical advice (07) ==
LOC: M ED 20:58
DX: Z53.21 Procedure and treatment not carried out due to patient leaving prior to being seen by health care provider (principal)

== ENCOUNTER → 2023-05-11 | Outpatient (CLI) | payer OTHER | LOC: M PLALAB 15:45 | PROVIDERS: ATTEND Nurse Practitioner Family | DX: Z01.84 Encounter for antibody response examination (principal) ==

== ENCOUNTER → 2023-09-01 | Outpatient (REF) | payer OTHER | LOC: M SFHCWAGY 15:39 | PROVIDERS: ATTEND Nurse Practitioner Family | DX: Z30.42 Encounter for surveillance of injectable contraceptive (principal) ==

== ENCOUNTER → 2024-07-23 | Outpatient (CLI) | payer OTHER ==
[~2024-07-23] MED LIST changes: +ONDA-282 PO; -ONDA4TAB6 PO
[2024-07-23 12:55] LABS: BASO # 0.1 10^3/uL (0.0-0.2); BASO % 0.8 % (0.0-1.0); EOS # 0.1 10^3/uL (0.0-0.5); EOS % 1.1 % (0.0-3.0); HEMATOCRIT 38.4 % (36.0-47.0); HEMOGLOBIN 12.9 g/dl (12.0-15.5); LYMPH # 2.1 10^3/uL (1.5-5.0); LYMPH % 32.1 % (24.0-44.0); MEAN CORPUSCULAR HEMOGLOBIN 31.2 pg (27.0-33.0); MEAN CORPUSCULAR HGB CONC 33.6 g/dl (32.0-36.5); MEAN CORPUSCULAR VOLUME 92.8 fl (80.0-96.0); MONO # 0.5 10^3/uL (0.0-0.8); MONO % 7.4 % (2.0-8.0); NEUTROPHILS # 3.8 10^3/uL (1.5-8.5); NEUTROPHILS % 58.3 % (36.0-66.0); PLATELET COUNT, AUTOMATED 282 10^3/uL (150-450); RED BLOOD COUNT 4.14 10^6/uL (4.00-5.40); WHITE BLOOD COUNT 6.5 10^3/uL (4.0-10.0)
[2024-07-23 13:27] LABS: ALBUMIN 3.7 G/DL (3.2-5.2); ALKALINE PHOSPHATASE 43 U/L (35-104); ALT/SGPT 23 U/L (7.0-40); AST/SGOT 11 U/L (<34); BILIRUBIN,TOTAL 0.5 MG/DL (0.3-1.2); BLOOD UREA NITROGEN 13 MG/DL (9-23); CALCIUM LEVEL 9.6 MG/DL (8.5-10.1); CARBON DIOXIDE LEVEL 28 MMOL/L (20-31); CHLORIDE LEVEL 109 MMOL/L (98-107); CREATININE FOR GFR 0.64 MG/DL (0.55-1.30); GLOMERULAR FILTRATION RATE > 60.0 (>60); GLUCOSE, FASTING 98 MG/DL (60-100); POTASSIUM SERUM 4.2 MMOL/L (3.5-5.1); SODIUM LEVEL 141 MMOL/L (136-145); THYROID STIMULATING HORMONE 0.887 uIU/ML (0.55-4.78); TOTAL PROTEIN 7.2 G/DL (5.7-8.2)
[2024-07-23 13:31] LABS: FREE T3 3.3 PG/ML (2.3-4.2)
== END ==
LOC: M PLALAB 09:58
PROVIDERS: ATTEND Student in an Organized Health Care Education/Training Program
DX: Z01.818 Encounter for other preprocedural examination (principal); R53.83 Other fatigue

== ENCOUNTER 2024-08-14 06:06 | Observation (INO) | payer SELFPAY ==
[2024-08-14] VITALS (8 sets, daily range): BP systolic 124–166; BP diastolic 82–113; TEMP 97.5–99; O2SAT 96–98
[~2024-08-14] VITALS: Ht 162.6 cm; Wt 94.3 kg
[2024-08-14] MEDS ORDERED: LIDOCAINE 2% 100MG/5ML SDV (FOR ANES.) As Ordered ONE (07:19)
[2024-08-14] MEDS ORDERED: dexmedeTOMIDine (4MCG/ML)200MCG/50ML BTL (PRECEDEX) As Ordered ONE (07:19)
[2024-08-14] MEDS: NS 1,000 ML IV SCH ×2 (07:19→12:10)
[2024-08-14] MEDS ORDERED: ROCURONIUM BROMIDE 50MG/5ML VIAL As Ordered ONE (07:19)
[2024-08-14] MEDS ORDERED: propofoL 200 MG/20 ML VIAL As Ordered ONE (07:19)
[2024-08-14] MEDS ORDERED: MIDAZOLAM INJ 2MG/2ML VIAL As Ordered ONE (07:19)
[2024-08-14] MEDS ORDERED: fentaNYL 250 MCG/5 ML INJECTION As Ordered ONE (07:19)
[2024-08-14] MEDS: SCOPOLAMINE 1MG TRANSDERMAL PATCH TOP ONE (07:19)
[2024-08-14] MEDS ORDERED: ONDANSETRON 4MG 2ML VIAL As Ordered ONE (07:19)
[2024-08-14] MEDS: HEPARIN SOD (PORCINE) 5000UNITS/ML 1ML VIAL/SYRINGE SQ ONE (08:04)
[2024-08-14] MEDS: ceFAZolin SOD 2 GM in IV 1 EA IV ONE (08:05)
[2024-08-14] MEDS: GENTAMICIN SULF 80MG/2ML VIAL As Ordered ONE (08:30)
[2024-08-14] MEDS ORDERED: SUGAMMADEX SODIUM 500 MG/5 ML VIAL (BRIDION) As Ordered ONE (08:43)
[2024-08-14] MEDS ORDERED: HYDROmorphone HCL 2MG/ML 1ML VIAL As Ordered ONE (08:43)
[2024-08-14] MEDS ORDERED: ACETAMINOPHEN 1000MG/100ML IV BAG As Ordered ONE (09:05)
[2024-08-14] MEDS ORDERED: ceFAZolin 2 GM/D5W 50 ML IV BAG As Ordered ONE (11:18)
[2024-08-14] MEDS ORDERED: HYDROMORPHONE HCL 0.5 MG/ 0.5 ML SYRINGE IV PRN (12:10)
[2024-08-14] MEDS ORDERED: ONDANSETRON 4MG 2ML VIAL IV PRN (12:10)
[2024-08-14] MEDS ORDERED: oxyCODONE 5MG TAB PO PRN (12:10)
[2024-08-14] MEDS ORDERED: fentaNYL 100 MCG/2 ML INJECTION IV PRN (12:10)
[2024-08-14] MEDS ORDERED: ACETAMINOPHEN 325 MG TAB PO PRN (12:10)
[2024-08-14] MEDS: ONDANSETRON 4MG 2ML VIAL IV PRN (12:27)
[2024-08-14] MEDS: METOCLOPRAMIDE INJ 10MG/2ML VIAL IV PRN (13:08)
[2024-08-14] MEDS ORDERED: LACRILUBE (AKWA TEARS) OPHTH OINT 3.5GM As Ordered ONE (13:09)
[2024-08-14] MEDS: PERCOCET 5MG/325MG TAB PO PRN (14:00)
[2024-08-14] MEDS: ceFAZolin SOD 2 GM in IV 1 EA IV SCH (16:43)
[2024-08-14] MEDS: traMADol 50 MG TAB PO PRN (20:36)
[2024-08-15 04:52] VITALS: BP 140/86; TEMP 98.9; O2SAT 95
[2024-08-15 08:00] VITALS: BP 117/82; TEMP 98.3; O2SAT 94
[2024-08-15] MEDS ORDERED: TRAM50TA2 PO (11:37)
[2024-08-15 12:00] VITALS: BP 130/86; TEMP 97.6; O2SAT 97
== END 2024-08-15 13:50 | disposition home or self-care (01) ==
LOC: M SDC 06:06 → M RR INP 06:07 → MERGE 07:30 → M MS5PR 13:30
PROVIDERS: ADMIT Plastic Surgery Surgery of the Hand; ATTEND Plastic Surgery Surgery of the Hand
DX: N62 Hypertrophy of breast (principal)
CPT/HCPCS: 19318; 81025; 88305; 96365; 96366; C9290; J0131; J0665; J0690; J1100; J1171; J1580; J2250; J2405; J2765; J3010

== ENCOUNTER 2024-09-17 17:02 | Emergency (ER) | payer SELFPAY ==
[~2024-09-17] VITALS: Ht 165.1 cm; Wt 97.2 kg
[~2024-09-17 17:02] MED LIST changes: +TRAM50TA2 PO
[2024-09-17 18:57] LABS: APPEARANCE, URINE HAZY (CLEAR); BACTERIA, URINE AUTO NEGATIVE (NEGATIVE); BILIRUBIN, URINE AUTO NEGATIVE (NEGATIVE); BLOOD, URINE BLOOD NEGATIVE (NEGATIVE); COLOR, URINE YELLOW (YELLOW); GLUCOSE, URINE (UA) AUTO NEGATIVE (NEGATIVE); KETONE, URINE AUTO NEGATIVE (NEGATIVE); LEUKOCYTE ESTERASE, URINE AUTO NEGATIVE (NEGATIVE); NITRITE, URINE AUTO NEGATIVE (NEGATIVE); PROTEIN, URINE AUTO NEGATIVE (NEGATIVE); RBC, URINE AUTO 0 /HPF (0-3); SPECIFIC GRAVITY URINE AUTO 1.018 (1.002-1.035); SQUAMOUS EPITHELIAL CELL UR AU 4 /HPF (0-6); WBC, URINE AUTO 1 /HPF (0-3)
[2024-09-17 20:04] VITALS: BP 118/67; TEMP 98.3; O2SAT 100
[2024-09-17 20:53] LABS: BASO % 0.4 % (0.0-1.0); EOS # 0.1 10^3/uL (0.0-0.5); EOS % 1.1 % (0.0-3.0); HEMATOCRIT 35.8 % (36.0-47.0); HEMOGLOBIN 11.7 g/dl (12.0-15.5); LYMPH # 2.4 10^3/uL (1.5-5.0); LYMPH % 31.7 % (24.0-44.0); MEAN CORPUSCULAR HEMOGLOBIN 30.1 pg (27.0-33.0); MEAN CORPUSCULAR HGB CONC 32.7 g/dl (32.0-36.5); MONO # 0.6 10^3/uL (0.0-0.8); MONO % 7.7 % (2.0-8.0); NEUTROPHILS # 4.4 10^3/uL (1.5-8.5); PLATELET COUNT, AUTOMATED 276 10^3/uL (150-450); RED BLOOD COUNT 3.89 10^6/uL (4.00-5.40); WHITE BLOOD COUNT 7.5 10^3/uL (4.0-10.0)
== END 2024-09-17 21:09 | disposition left against medical advice (07) ==
LOC: M ED 17:02
DX: Z53.21 Procedure and treatment not carried out due to patient leaving prior to being seen by health care provider (principal)

== ENCOUNTER → 2024-10-30 | Outpatient (CLI) | payer OTHER ==
[2024-10-30 15:02] LABS: HEMATOCRIT 35.8 % (36.0-47.0); MEAN CORPUSCULAR HEMOGLOBIN 30.2 pg (27.0-33.0); MEAN CORPUSCULAR HGB CONC 33.5 g/dl (32.0-36.5); MEAN CORPUSCULAR VOLUME 90.2 fl (80.0-96.0); PLATELET COUNT, AUTOMATED 248 10^3/uL (150-450); RED BLOOD COUNT 3.97 10^6/uL (4.00-5.40)
[2024-10-30 15:39] LABS: HIV 1&2 SCREEN NEGATIVE (NEGATIVE)
[2024-10-30 15:48] LABS: HEPATITIS C VIRUS ABY INDEX 0.13 INDEX (<0.8)
[2024-10-30 16:01] LABS: Trichomonas vaginalis (AMP) NOT DETECTED (NEGATIVE)
[2024-10-30 16:24] LABS: GC DNA AMPLIFICATION NEGATIVE (NEGATIVE)
== END ==
LOC: M PLALAB 13:27
PROVIDERS: ATTEND Nurse Practitioner Family
DX: Z34.81 Encounter for supervision of other normal pregnancy, first trimester (principal)

== ENCOUNTER 2024-12-15 18:36 | Emergency (ER) | payer OTHER ==
[~2024-12-15] VITALS: Ht 154.9 cm; Wt 102.6 kg
[2024-12-15 18:38] VITALS: TEMP 99.3
[2024-12-15] MEDS ORDERED: prenatal vitamin (18:45)
[2024-12-15 19:39] LABS: BASO % 0.3 % (0.0-1.0); EOS # 0.1 10^3/uL (0.0-0.5); EOS % 0.7 % (0.0-3.0); HEMATOCRIT 33.1 % (36.0-47.0); HEMOGLOBIN 11.2 g/dl (12.0-15.5); LYMPH # 2.2 10^3/uL (1.5-5.0); LYMPH % 25.6 % (24.0-44.0); MEAN CORPUSCULAR HEMOGLOBIN 30.4 pg (27.0-33.0); MEAN CORPUSCULAR HGB CONC 33.8 g/dl (32.0-36.5); MEAN CORPUSCULAR VOLUME 89.9 fl (80.0-96.0); MONO # 0.5 10^3/uL (0.0-0.8); MONO % 5.3 % (2.0-8.0); NEUTROPHILS # 5.9 10^3/uL (1.5-8.5); NEUTROPHILS % 67.8 % (36.0-66.0); PLATELET COUNT, AUTOMATED 221 10^3/uL (150-450); RED BLOOD COUNT 3.68 10^6/uL (4.00-5.40); WHITE BLOOD COUNT 8.7 10^3/uL (4.0-10.0)
[2024-12-15 20:02] LABS: LIPASE 25 U/L (12-53)
[2024-12-15 20:04] LABS: ALBUMIN 2.9 G/DL (3.2-5.2); ALKALINE PHOSPHATASE 28 U/L (35-104); ALT/SGPT 31 U/L (7.0-40); AST/SGOT 23 U/L (<34); BILIRUBIN,DIRECT < 0.1 MG/DL (<0.4); BILIRUBIN,TOTAL 0.4 MG/DL (0.3-1.2); BLOOD UREA NITROGEN 5 MG/DL (9-23); CALCIUM LEVEL 8.8 MG/DL (8.5-10.1); CARBON DIOXIDE LEVEL 23 MMOL/L (20-31); CHLORIDE LEVEL 105 MMOL/L (98-107); CREATININE FOR GFR 0.45 MG/DL (0.55-1.30); GLOMERULAR FILTRATION RATE > 60.0 (>60); GLUCOSE, FASTING 102 MG/DL (60-100); POTASSIUM SERUM 4.1 MMOL/L (3.5-5.1); SODIUM LEVEL 137 MMOL/L (136-145); TOTAL PROTEIN 6.5 G/DL (5.7-8.2)
[2024-12-15 20:06] LABS: KETONE, URINE AUTO RFX NEGATIVE (NEGATIVE); LEUKOCYTE ESTERASE UR AUTO RFX NEGATIVE (NEGATIVE); MUCUS, URINE RFX SMALL (NEGATIVE); NITRITE, URINE AUTO RFX NEGATIVE (NEGATIVE); RBC, URINE AUTO RFX 1 /HPF (0-3); SQUAM EPITHELIAL CELL UR AURFX 15 /HPF (0-6); WBC, URINE AUTO RFX 2 /HPF (0-3)
[2024-12-15 20:36] VITALS: BP 126/73; O2SAT 99
[2024-12-15 21:42] LABS: Trichomonas vaginalis (AMP) NOT DETECTED (NEGATIVE)
[2024-12-15 22:06] LABS: GC DNA AMPLIFICATION NEGATIVE (NEGATIVE)
== END 2024-12-15 20:36 | disposition home or self-care (01) ==
LOC: M ED 18:36
DX: O26.892 Other specified pregnancy related conditions, second trimester (principal); R10.2 Pelvic and perineal pain; R51.9 Headache, unspecified; Z3A.18 18 weeks gestation of pregnancy; Z91.040 Latex allergy status; Z91.048 Other nonmedicinal substance allergy status; Z79.899 Other long term (current) drug therapy

== ENCOUNTER → 2024-12-27 | Outpatient (CLI) | payer OTHER ==
[~2024-12-27] MED LIST changes: +prenatal vitamin
== END ==
LOC: M WHC 13:41
PROVIDERS: ATTEND Nurse Practitioner Family
DX: Z34.82 Encounter for supervision of other normal pregnancy, second trimester (principal)

== ENCOUNTER → 2025-01-17 | Outpatient (CLI) | payer OTHER | LOC: M WHC 13:58 | PROVIDERS: ATTEND Nurse Practitioner Family | DX: Z34.82 Encounter for supervision of other normal pregnancy, second trimester (principal) ==

== ENCOUNTER → 2025-01-21 | Outpatient (CLI) | payer OTHER ==
[2025-01-21 17:05] LABS: HEMATOCRIT 34.8 % (36.0-47.0); HEMOGLOBIN 11.4 g/dl (12.0-15.5); MEAN CORPUSCULAR HEMOGLOBIN 30.5 pg (27.0-33.0); MEAN CORPUSCULAR HGB CONC 32.8 g/dl (32.0-36.5); PLATELET COUNT, AUTOMATED 215 10^3/uL (150-450); RED BLOOD COUNT 3.74 10^6/uL (4.00-5.40); WHITE BLOOD COUNT 9.3 10^3/uL (4.0-10.0)
[2025-01-21 17:30] LABS: GLUCOSE CHALLENGE TEST 1 HOUR 103 MG/DL (LESS THAN 140)
[2025-01-21 18:05] LABS: HIV 1&2 SCREEN NEGATIVE (NEGATIVE)
[2025-01-21 18:13] LABS: HEPATITIS C VIRUS ABY INDEX 0.05 INDEX (<0.8)
[2025-01-21 18:49] LABS: GC DNA AMPLIFICATION NEGATIVE (NEGATIVE)
== END ==
LOC: M PLALAB 14:31
PROVIDERS: ATTEND Obstetrics & Gynecology
DX: Z34.92 Encounter for supervision of normal pregnancy, unspecified, second trimester (principal); Z3A.00 Weeks of gestation of pregnancy not specified

== ENCOUNTER → 2025-03-06 | Outpatient (CLI) | payer OTHER ==
[~2025-03-06] MED LIST changes: +BANO25TA PO; +COLA100C5 PO; +IBUP80TA PO; +LABE100T6 PO; +LABE20TAB PO; +METO10TA2 PO; +NIFE1TAB52 PO
[2025-03-06 15:45] LABS: HEMATOCRIT 35.2 % (36.0-47.0); HEMOGLOBIN 11.6 g/dl (12.0-15.5); MEAN CORPUSCULAR HEMOGLOBIN 30.1 pg (27.0-33.0); MEAN CORPUSCULAR VOLUME 91.2 fl (80.0-96.0); PLATELET COUNT, AUTOMATED 226 10^3/uL (150-450); RED BLOOD COUNT 3.86 10^6/uL (4.00-5.40); WHITE BLOOD COUNT 8.6 10^3/uL (4.0-10.0)
[2025-03-06 16:13] LABS: TOTAL PROTEIN,RANDOM URINE 11.9 MG/DL (0.0-14.0)
[2025-03-06 16:16] LABS: URIC ACID 3.3 MG/DL (3.1-7.8)
[2025-03-06 16:17] LABS: CREATININE,RANDOM URINE 139.9 MG/DL
[2025-03-06 16:18] LABS: LDH LACTATE DEHYDROGENASE 145 U/L (120-246)
[2025-03-06 16:19] LABS: ALT/SGPT 15 U/L (7.0-40); AST/SGOT 18 U/L (<34); BILIRUBIN,TOTAL 0.4 MG/DL (0.3-1.2); CREATININE FOR GFR 0.47 MG/DL (0.55-1.30); GLOMERULAR FILTRATION RATE > 90.0 (>60)
== END ==
LOC: M PLALAB 13:11
PROVIDERS: ATTEND Obstetrics & Gynecology
DX: O13.9 Gestational [pregnancy-induced] hypertension without significant proteinuria, unspecified trimester (principal)

== ENCOUNTER → 2025-03-20 | Outpatient (REF) | payer OTHER ==
[2025-03-20 14:33] LABS: TOTAL PROTEIN,RANDOM URINE 27.6 MG/DL (0.0-14.0)
== END ==
LOC: M SFHCWAGY 12:23
PROVIDERS: ATTEND Obstetrics & Gynecology
DX: O13.3 Gestational [pregnancy-induced] hypertension without significant proteinuria, third trimester (principal)

== ENCOUNTER 2025-03-21 22:54 | Outpatient (CLI) | payer OTHER ==
[~2025-03-21] VITALS: Ht 162.6 cm; Wt 116.4 kg
[~2025-03-21 22:54] MED LIST changes: -BANO25TA PO; -COLA100C5 PO; -IBUP80TA PO; -LABE100T6 PO; -LABE20TAB PO; -METO10TA2 PO; -NIFE1TAB52 PO
[2025-03-21 23:04] VITALS: BP 188/91
[2025-03-21 23:21] VITALS: BP 179/93
[2025-03-21] MEDS ORDERED: NIFEdipine 10 MG CAP As Ordered ONE (23:27)
[2025-03-21] MEDS: NIFEdipine 10 MG CAP PO SCH (23:36)
[2025-03-21 23:51] VITALS: BP 154/74
[2025-03-22] VITALS (19 sets, daily range): BP systolic 139–175; BP diastolic 72–86
[2025-03-22 00:42] LABS: TOTAL PROTEIN,RANDOM URINE 27.3 MG/DL (0.0-14.0)
[2025-03-22 01:23] LABS: PLATELET COUNT, AUTOMATED 168 10^3/uL (150-450)
[2025-03-22 01:45] LABS: LDH LACTATE DEHYDROGENASE 173 U/L (120-246)
[2025-03-22 01:46] LABS: ALT/SGPT 17 U/L (7.0-40); AST/SGOT 20 U/L (<34); CREATININE FOR GFR 0.58 MG/DL (0.55-1.30); GLOMERULAR FILTRATION RATE > 90.0 (>60)
[2025-03-22] MEDS ORDERED: ACETAMINOPHEN 500 MG TAB PO ONE (02:00)
[2025-03-22] MEDS: NIFEdipine 30MG XL TAB PO STA (04:25)
== END 2025-03-22 04:55 | disposition left against medical advice (07) ==
LOC: M LDO 22:54
PROVIDERS: ATTEND Obstetrics & Gynecology
DX: O13.3 Gestational [pregnancy-induced] hypertension without significant proteinuria, third trimester (principal); Z3A.31 31 weeks gestation of pregnancy; Z91.198 Patient's noncompliance with other medical treatment and regimen for other reason
CPT/HCPCS: 59025; 82247; 82570; 83615; 84156; 84450; 84460; 84550; 85027; G0463

== ENCOUNTER 2025-03-25 21:04 | Inpatient (IN) | payer OTHER ==
[~2025-03-25] VITALS: Ht 162.6 cm; Wt 117.7 kg
[2025-03-25] VITALS (10 sets, daily range): BP systolic 128–175; BP diastolic 74–98; O2SAT 98
[2025-03-25] MEDS ORDERED: LABE100T6 PO (21:27)
[2025-03-25] MEDS ORDERED: NIFE1TAB52 PO (21:27)
[2025-03-25] MEDS ORDERED: METO10TA2 PO (21:27)
[2025-03-25] MEDS ORDERED: BANO25TA PO (21:27)
[2025-03-25] MEDS ORDERED: HOME MED LIST COMPLETE! XX SCH (21:30)
[2025-03-25] MEDS: NIFEdipine 10 MG CAP PO STA (21:44)
[2025-03-25] MEDS: BETAMETHASONE SOLUSPAN 6 MG/ML 5 ML VIAL IM SCH (21:45)
[2025-03-25] MEDS ORDERED: OXYTOCIN DRIP 30 UNITS in IV 1 EA IV PRN (22:15)
[2025-03-25] MEDS ORDERED: CARBOPROST TROMETHAMINE 250 MCG/ML AMP IM PRN (22:15)
[2025-03-25] MEDS ORDERED: TRANEXAMIC ACID INJection 1,000 MG in NS 100 ML IV PRN (22:15)
[2025-03-25] MEDS ORDERED: OXYTOCIN INJ 10UNITS/ML 1ML VIAL IM PRN (22:15)
[2025-03-25] MEDS ORDERED: METHYLERGONOVINE MALEATE 0.2 MG/ML 1 ML VIAL IM PRN (22:15)
[2025-03-25] MEDS: MAGNESIUM *L&D* 4 GM/100 ML BAG (40 MG/ML) IV ONE (22:32)
[2025-03-25] MEDS: LR 1,000 ML IV SCH (22:32)
[2025-03-25 22:35] LABS: PLATELET COUNT, AUTOMATED 166 10^3/uL (150-450)
[2025-03-25] MEDS: MAG Sulf (OBGYN) 20GM/500ML 20,000 MG in IV 1 EA IV SCH (22:56)
[2025-03-25 23:04] LABS: LDH LACTATE DEHYDROGENASE 211 U/L (120-246)
[2025-03-25 23:05] LABS: ALT/SGPT 24 U/L (7.0-40); AST/SGOT 28 U/L (<34); CREATININE FOR GFR 0.66 MG/DL (0.55-1.30); GLOMERULAR FILTRATION RATE > 90.0 (>60)
[2025-03-25 23:11] LABS: TOTAL PROTEIN,RANDOM URINE 132.8 MG/DL (0.0-14.0)
[2025-03-25 23:39] LABS: HIV 1&2 SCREEN NEGATIVE (NEGATIVE)
[2025-03-25 23:46] LABS: HEPATITIS C VIRUS ABY INDEX < 0.02 INDEX (<0.8)
[2025-03-25] MEDS ORDERED: ONDANSETRON 4MG 2ML VIAL IV PRN (23:55)
[2025-03-26] VITALS (52 sets, daily range): BP systolic 126–195; BP diastolic 70–98; TEMP 97.5–98.2; O2SAT 91–98
[2025-03-26] MEDS: NIFEdipine 30 MG XL TAB PO SCH (08:55)
[2025-03-26] MEDS: BETAMETHASONE SOLUSPAN 6 MG/ML 5 ML VIAL IM ONE (12:30)
[2025-03-26] MEDS ORDERED: CARBOPROST TROMETHAMINE 250 MCG/ML AMP IM PRN (12:40)
[2025-03-26] MEDS ORDERED: TRANEXAMIC ACID INJection 1,000 MG in NS 100 ML IV PRN (12:40)
[2025-03-26] MEDS ORDERED: KETOROLAC 30 MG/ML 1 ML VIAL As Ordered ONE (13:00)
[2025-03-26] MEDS ORDERED: dexAMETHasone 4 MG/ML 1 ML VIAL As Ordered ONE (13:00)
[2025-03-26] MEDS ORDERED: MORPHINE PRES-FREE INJ 10 MG/10 ML VIAL As Ordered ONE (13:00)
[2025-03-26] MEDS ORDERED: ONDANSETRON 4MG 2ML VIAL As Ordered ONE (13:00)
[2025-03-26] MEDS ORDERED: OXYTOCIN 30UNITS IN 0.9% NaCl 500ML IV BAG As Ordered ONE (13:01)
[2025-03-26] MEDS ORDERED: ACETAMINOPHEN 1000MG/100ML IV BAG As Ordered ONE (13:01)
[2025-03-26] MEDS: ceFAZolin SODIUM 2 GM in DEXTROSE 5% (D5W) ADV/MINI-BAG 50 ML IV ONE (13:27)
[2025-03-26] MEDS: BICITRA 30 ML SOLN UDC PO ONE (13:27)
[2025-03-26 13:28] LABS: PLATELET COUNT, AUTOMATED 177 10^3/uL (150-450)
[2025-03-26 13:53] LABS: MAGNESIUM LEVEL 5.8 MG/DL (1.8-2.4)
[2025-03-26 14:01] LABS: HEPATITIS C VIRUS ABY INDEX < 0.02 INDEX (<0.8)
[2025-03-26 15:00] LABS: CORD GAS ABE V -5.0; CORD GAS HCO3 V 20.5 MMOL/L; CORD GAS O2 SAT V 38.4 %; CORD GAS PCO2 V 39.8 mmHg; CORD GAS PH V 7.33 UNITS; CORD GAS PO2 V 19.0 mmHg; CORD GAS SBC V 18.9 MMOL/L; CORD GAS TCO2 V 21.7 MMOL/L
[2025-03-26 15:03] LABS: CORD GAS ABE A -4.8; CORD GAS HCO3 A 21.1 MMOL/L; CORD GAS O2 SAT A 32.9 %; CORD GAS PCO2 A 42.0 mmHg; CORD GAS PH A 7.319 UNITS; CORD GAS PO2 A 16.7 mmHg; CORD GAS SBC A 18.9 MMOL/L; CORD GAS TCO2 A 22.4 MMOL/L
[2025-03-26] MEDS ORDERED: MOM 30 ML SUSPENSION UDC PO PRN (16:25)
[2025-03-26] MEDS ORDERED: RHOGAM 300MCG (1500IU) INJ IM SCH (16:25)
[2025-03-26] MEDS ORDERED: CALCIUM CARBONATE 500 MG CHEW U/D PO PRN (16:25)
[2025-03-26] MEDS ORDERED: ONDANSETRON 4MG 2ML VIAL IV PRN ×2 (16:25→17:00)
[2025-03-26] MEDS ORDERED: SIMETHICONE 80MG CHEW TAB PO PRN (16:25)
[2025-03-26] MEDS ORDERED: PERCOCET 5MG/325MG TAB PO PRN ×2 (16:25)
[2025-03-26] MEDS ORDERED: MEPERIDINE 25 MG/ML 1 ML VIAL IV PRN (17:00)
[2025-03-26] MEDS ORDERED: **NOTE PATIENT COMMENT** MISC XX SCH (17:00)
[2025-03-26] MEDS: SLF 3 ML SYR IV SCH (17:00)
[2025-03-26] MEDS ORDERED: NALOXONE INJ 0.4 MG/1 ML VIAL IV PRN ×2 (17:00)
[2025-03-26] MEDS ORDERED: diphenhydrAMINE 50 MG/ML VIAL As Ordered ONE (17:06)
[2025-03-26] MEDS: OXYTOCIN DRIP 30 UNITS in IV 1 EA IV SCH (17:12)
[2025-03-26] MEDS: diphenhydrAMINE 50 MG/ML VIAL IV PRN (17:12)
[2025-03-26] MEDS: LR 1,000 ML IV SCH (19:00)
[2025-03-26] MEDS: DOCUSATE SODIUM 100 MG CAPSULE PO SCH (21:16)
[2025-03-26] MEDS: KETOROLAC 30 MG/ML 1 ML VIAL IV SCH (21:16)
[2025-03-26] MEDS: PERCOCET 5MG/325MG TAB PO ONE (23:50)
[2025-03-27] VITALS (25 sets, daily range): BP systolic 130–171; BP diastolic 65–101; O2SAT 95–98
[2025-03-27 06:49] LABS: PLATELET COUNT, AUTOMATED 192 10^3/uL (150-450)
[2025-03-27] MEDS: FERROUS SULFATE 325 MG TAB PO SCH (08:47)
[2025-03-27] MEDS: PRENATAL VITAMINS CHEWABLE TABLET PO SCH (08:47)
[2025-03-27] MEDS ORDERED: COLA100C5 PO (10:09)
[2025-03-27] MEDS ORDERED: IBUP80TA PO (10:09)
[2025-03-27] MEDS: IBUPROFEN 800 MG TAB PO SCH (18:10)
[2025-03-27] MEDS: LABETALOL 200 MG TAB PO SCH (20:14)
[2025-03-28] MEDS: ACETAMINOPHEN 500 MG TAB PO ONE
[2025-03-28 01:55] VITALS: BP 139/74; O2SAT 94
[2025-03-28 05:55] VITALS: BP 142/84; O2SAT 99
[2025-03-28 08:18] LABS: PLATELET COUNT, AUTOMATED 165 10^3/uL (150-450)
[2025-03-28 09:52] VITALS: BP 148/82; O2SAT 98
[2025-03-28] MEDS: MEASLES,MUMPS,RUBELLA VACCINE INJ (MMR-II) SC.IMMUN ONE (11:03)
[2025-03-28] MEDS ORDERED: NIFE1TAB52 PO (11:07)
[2025-03-28] MEDS ORDERED: LABE20TAB PO (11:07)
== END 2025-03-28 13:18 | disposition home or self-care (01) | DRG 540 ==
LOC: M LDO 21:04 → M LDI 22:14 → M OBS 03-27 20:30
PROVIDERS: ADMIT Advanced Practice Midwife; ATTEND Advanced Practice Midwife
PROC: 10D00Z1 Extraction of Products of Conception, Low, Open Approach (ICD-10-PCS; principal; 2025-03-26 14:00)
DX: O14.14 Severe pre-eclampsia complicating childbirth (principal); O34.211 Maternal care for low transverse scar from previous cesarean delivery; Z37.0 Single live birth; Z3A.32 32 weeks gestation of pregnancy